=== PATIENT | female | born 1970 | race Caucasian/White ===

== ENCOUNTER 2017-10-10 11:14 | Emergency (ER) | payer OTHER | END 2017-10-10 12:08 | disposition home or self-care (01) | LOC: FTE 11:14 | DX: J06.9 Acute upper respiratory infection, unspecified (principal) | CPT/HCPCS: 99283; Z7502 ==

== ENCOUNTER 2018-06-24 20:46 | Emergency (ER) | payer OTHER ==
[2018-06-24] MEDS: GUAIFENESIN/CODEINE 5ML CUP PO (21:57)
== END 2018-06-24 22:13 | disposition home or self-care (01) ==
LOC: FTE 20:46
DX: J40 Bronchitis, not specified as acute or chronic (principal); J32.9 Chronic sinusitis, unspecified
CPT/HCPCS: 99283; Z7610